=== PATIENT | female | born 1970 | race Caucasian/White ===

== ENCOUNTER 2023-03-17 07:46 | Outpatient (AMB) | payer BC, SELFPAY ==
--- NOTE | 2023-03-17 07:48 | MHC.OFFVIS ---
Intake Vital Signs 03/17/23 07:56 Height 5 ft 5 in Weight 193 lb BMI 32.1 BP 126/74 Intake Visit Reasons: New patient Annual Intake Note: no concerns Supervisor Phosphatic Fertilizer Required: No Information Interpreted: non-clinical & clinical Mold Holder: Mold Holder Present (Jo Ann Denise MADELYNChapin) Accompanied by: Self / Same As Patient Allergies No Known Allergies Allergy (Verified 03/17/23 07:57) Post menopausal: Yes HPI HPI Comments History of Present Illness Details Presenting for annual exam. No complaints. Last Pap/HPV was negative in 2016 Last Mammogram was 4 months ago in outside facility, according to patient was negative, no records available. Last Colonoscopy was 3 years ago, the patient had polyp and the recommendation was to repeat in 5 years from the time of last colonoscopy [facility] Medical History HTN (hypertension) Hyperlipidemia Family History Mother HTN (hypertension) Father HTN (hypertension) Heart attack Brother HTN (hypertension) Social History Household Members: Spouse Housing: House Alcohol intake: current Alcohol intake frequency: 3 or more drinks per day Alcohol type: beer Patient Tobacco Use Status: Former Tobacco user Tobacco use type: Cigarette Years Smoked: 25 Current occupational status: employed Current occupation: [employer] Sexually active: Yes Sexual orientation: Straight/Heterosexual Gender identity: Female Female Reproductive History Menstrual Menopause type: natural Total pregnancies: 3 Full term: 3 Number of Living Children: 3 Date of last pap smear: 08/07/16 Review of Systems Const All systems reviewed & are unremarkable except as noted in HPI and below Card Reports as per HPI Resp Reports as per HPI GI Reports as per HPI and Reports no additional complaints Reports as per HPI Physical Exam Vital Signs: Last Vital Signs BP 126/74 03/17/23 07:56 BMI result Body Mass Index 32.1 Const General: cooperative, healthy appearing and comfortable Chest Chest palpation & inspection: normal inspection of the chest and normal palpation of entire chest wall Breast/axilla inspection: normal inspection of the breasts and normal inspection of the axillae Breast/axilla palpation: normal palpation of the breasts, normal palpation of the axillae and no axillary lymphadenopathy Resp Effort & Inspection: normal respiratory effort Auscultation: clear to auscultation bilaterally Percussion: percussion normal Cardio Palpation: normal PMI Rate: regular rate Rhythm: regular rhythm Heart sounds: no murmurs and no rubs Peripheral pulses: Peripheral pulses 2+ throughout GI Inspection: Yes normal to inspection Palpation (GI): Soft to palpation, nontender, no guarding, not rigid and No hepatosplenomegaly present Percussion: Yes normal to percussion Auscultation: normal bowel sounds Rectal Exam - Female: deferred General: Yes bladder normal to palpation External Female Exam: No lesion Speculum Exam - Vagina: normal appearance of the vagina, normal palpation, normal vaginal discharge and not erythematous Speculum Exam - Cervix: normal appearance of the cervix and normal palpation Bimanual exam- vagina & uterus: normal bimanual exam, normal palpation, uterine size normal, bladder normal to palpation, consistency normal and normal palpation Bimanual Exam- Adnexa, other: normal adnexae, no masses and no tenderness Assessment & Plan Assessment & Plan (1) Well woman exam: Code(s): Z01.419 - Encounter for gynecological examination (general) (routine) without abnormal findings Plan: Co testing done. Counseled the patient about the recommended dietary allowance of 1200 mg of Calcium & 600 IU of vitamin D. Instructions given the patient to schedule her next screening Mammogram in 8 months , the patient is up-to-date with her screening colonoscopy . The patient was instructed to perform monthly self-breast exams and schedule annual exam in a year; all questions answered and the patient verbalized understanding. Coding Level of Care Code New Pt Prev Care 40-64y(80887) Diagnoses Well woman exam Z01.419
[2023-03-17 07:56] VITALS: BP 126/74; BMI 32.1
== END 2023-03-17 08:19 | disposition home or self-care (01) ==
LOC: HO.HWS 07:46
PROVIDERS: PCP Nurse Practitioner Family; Visit Provider Obstetrics & Gynecology
DX: Z01.419 Encounter for gynecological examination (general) (routine) without abnormal findings (principal)
CPT/HCPCS: 99386

== ENCOUNTER 2023-03-17 07:46 | Outpatient (REF) | payer BC, SELFPAY ==
[2023-03-24 21:14] LABS: HPV mRNA E6/E7 rflx Not Detected (Not Detected)
== END 2023-03-17 07:47 | disposition home or self-care (01) ==
LOC: HO.LNP 07:46
PROVIDERS: PCP Nurse Practitioner Family; Visit Provider Obstetrics & Gynecology
DX: Z01.419 Encounter for gynecological examination (general) (routine) without abnormal findings (principal); Z11.51 Encounter for screening for human papillomavirus (HPV)
CPT/HCPCS: 87624; 88142

== ENCOUNTER 2024-03-22 08:06 | Outpatient (AMB) | payer BC, SELFPAY ==
--- NOTE | 2024-03-22 08:11 | A.OFFVIS_ITS ---
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 No complaints. Last Pap/HPV was negative in 03/15 Last Mammogram is done at Last Colonoscopy was for years ago, the patient had polyp and the recommendation was to repeat in 5 years from the time of last colonoscopy [facility] Medical History Hyperlipidemia HTN (hypertension) Family History Mother HTN (hypertension) Father HTN (hypertension) Heart attack Brother HTN (hypertension) Social History Household Members: Spouse Housing: House Alcohol intake: current Alcohol intake frequency: 3 or more drinks per day Alcohol type: beer Patient Tobacco Use Status: Former Tobacco user Tobacco use type: Cigarette Years Smoked: 25 Current occupational status: employed Current occupation: [employer] Sexual orientation: Straight/Heterosexual Gender identity: Female Female Reproductive History Menstrual Total pregnancies: 3 Full term: 3 Number of Living Children: 3 Date of last pap smear: 03/19/23 Review of Systems Const All systems reviewed & are unremarkable except as noted in HPI and below Card Reports as per HPI Resp Reports as per HPI GI Reports as per HPI and Reports no additional complaints Reports as per HPI Physical Exam Vital Signs: BMI result Body Mass Index 32.1 Const General: cooperative, healthy appearing and comfortable Chest Chest palpation & inspection: normal inspection of the chest and normal palpation of entire chest wall Breast/axilla inspection: normal inspection of the breasts and normal inspection of the axillae Breast/axilla palpation: normal palpation of the breasts, normal palpation of the axillae and no axillary lymphadenopathy Resp Effort & Inspection: normal respiratory effort Auscultation: clear to auscultation bilaterally Percussion: percussion normal Cardio Palpation: normal PMI Rate: regular rate Rhythm: regular rhythm Heart sounds: no murmurs and no rubs Peripheral pulses: Peripheral pulses 2+ throughout GI Inspection: Yes normal to inspection Palpation (GI): Soft to palpation, nontender, no guarding, not rigid and No hepatosplenomegaly present Percussion: Yes normal to percussion Auscultation: normal bowel sounds Rectal Exam - Female: deferred General: Yes bladder normal to palpation External Female Exam: No lesion Speculum Exam - Vagina: normal appearance of the vagina, normal palpation, normal vaginal discharge and not erythematous Speculum Exam - Cervix: normal appearance of the cervix and normal palpation Bimanual exam- vagina & uterus: normal bimanual exam, normal palpation, uterine size normal, bladder normal to palpation, consistency normal and normal palpation Bimanual Exam- Adnexa, other: normal adnexae, no masses and no tenderness Assessment & Plan Assessment & Plan (1) Well woman exam: Code(s): Z01.419 - Encounter for gynecological examination (general) (routine) without abnormal findings Category: Medical Plan: Co testing not indicated this year. Counseled the patient about the recommended dietary allowance of 1200 mg of Calcium & 600 IU of vitamin D. Instructions given to patient to schedule next screening Mammogram next year. The patient was instructed to perform monthly self-breast exams and schedule annual exam in a year. All questions answered and the patient verbalized understanding. Coding Level of Care Code Est Pt Prev Care 40-64y(10154) Diagnoses Well woman exam Z01.419
[2024-03-22 08:15] VITALS: BMI 32.1
== END 2024-03-22 08:32 | disposition home or self-care (01) ==
LOC: HO.HWS 08:06
PROVIDERS: PCP Nurse Practitioner Family; Visit Provider Obstetrics & Gynecology
DX: Z01.419 Encounter for gynecological examination (general) (routine) without abnormal findings (principal)
CPT/HCPCS: 99396

== ENCOUNTER → 2024-03-22 08:06 | Outpatient (BNVA) | payer BC, SELFPAY | PROVIDERS: PCP Nurse Practitioner Family; Visit Provider Obstetrics & Gynecology ==